=== PATIENT | male | born 1995 | race Caucasian/White ===

== ENCOUNTER 2017-12-11 23:21 | Emergency (ER) | payer OTHER ==
[~2017-12-11] VITALS: Ht 188 cm; Wt 68.0 kg
[2017-12-11 23:37] VITALS: Ht 188 cm; Wt 68.0 kg
[2017-12-12 01:15] LABS: BASOPHIL % 0.2 % (0-2); RED CELL DISTRIBUTION WIDTH 13.2 % (11.5-14.5)
[2017-12-12 01:17] LABS: PLATELET COUNT 113 x10^3mcL (130-400)
[2017-12-12 01:21] LABS: CALCIUM 10.1 mg/dL (8.5-10.1); CARBON DIOXIDE 26.8 mmol/L (21-32); CHLORIDE SERUM 101 mmol/L (98-107); CREATININE SERUM 1.1 mg/dL (0.7-1.3); GFR1 > 60 mL/min; GLUCOSE SERUM 146 mg/dL (74-106); SODIUM SERUM 140 mmol/L (136-145)
[2017-12-12 01:33] LABS: ALBUMIN 4.6 g/dL (3.4-5.0); ALKALINE PHOSPHATASE 80 U/L (46-116); ALT/SGPT 594 U/L (16-63); AST/SGOT 423 U/L (15-37); BILIRUBIN TOTAL 3.47 mg/dL (0.20-1.00); TOTAL PROTEIN, SERUM 8.1 g/dL (6.4-8.2)
[2017-12-12 04:25] LABS: AMPHETAMINE QUAL UR NONE DETECTED (NEG <=1000)
[2017-12-12 06:40] VITALS: BP 134/73
== END 2017-12-12 06:40 | disposition short-term general hospital (02) ==
LOC: ED 23:21
PROVIDERS: Emergency Medicine
DX: S36.119A Unspecified injury of liver, initial encounter (principal); T39.1X2A Poisoning by 4-Aminophenol derivatives, intentional self-harm, initial encounter; T14.91XA Suicide attempt, initial encounter; X58.XXXA Exposure to other specified factors, initial encounter; Y92.89 Other specified places as the place of occurrence of the external cause; Y93.89 Activity, other specified; Y99.8 Other external cause status
CPT/HCPCS: G0480; J0132; J1630; J2405